=== PATIENT | female | born 1965 | race Caucasian/White ===

== ENCOUNTER 2017-09-19 11:56 | Emergency (ER) | payer SELFPAY | END 2017-09-19 12:41 | disposition home or self-care (01) | LOC: ER 11:56 | DX: L02.212 Cutaneous abscess of back [any part, except buttock and flank] (principal) | CPT/HCPCS: 99283 ==

== ENCOUNTER 2020-08-13 10:06 | Emergency (ER) | payer SELFPAY ==
[~2020-08-13] VITALS: Ht 162.6 cm; Wt 90.0 kg
[~2020-08-13 10:06] MED LIST: SULF1TAB24 PO
--- NOTE | 2020-08-13 11:56 | ED.ADGEN ---
Past Medical History Past Medical History: No Pertinent History Past Surgical History: Other Additional Past Surgical Histo: CERVICAL CANCER REMOVAL Smoking Status: Current Every Day Smoker Alcohol Use: None Drug Use: None General Adult EDM: Chief Complaint: THUMB HPI: HPI: Patient is a 55 year old female with right thumb pain and swelling over the past week. Patient states she had difficulty moving her thumb this morning and had difficult time trying to extend it. Patient states that while she was working she had poked her right thumb with a metal object that she is unsure of what it is. States object was removed intact. Thinks it might've penetrated to the bone. No other injuries, otherwise been well Review of Systems: Review of Systems: All other systems within normal limits except for as noted in the HPI Allergies: Allergies: Allergies Coded Allergies Type Severity Reaction Last Updated Verified No Known Drug Allergies 11/13/13 No Physical Exam: PE: Constitutional: Well developed, well nourished, no acute distress, non-toxic appearance. [] HENT: Normocephalic, atraumatic, bilateral external ears normal, nose normal. [] Eyes: PERRLA, conjunctiva normal, no discharge. [] Neck: No rigidity, supple, no stridor. [] Cardiovascular: Regular rate and rhythm, brisk cap refill [] Lungs & Thorax: Non labored symmetric respirations, no tachypnea or respiratory distress [] Abdomen: Soft, nondistended. Skin: Warm, dry, no erythema, no rash. [] Back: Unremarkable Extremities: No deformities, range of motion grossly intact, no lower extremity edema. Right thumb, flexion extension intact, popping with extension. No appreciable edema compared to left. [] Neurologic: Alert and oriented X 3, no focal deficits noted. [] Psychologic: Affect normal, judgement normal, mood normal. [] EKG: EKG: [] Heart Score: C/O Chest Pain: No Risk Factors: Risk Factors: DM, Current or recent (<one month) smoker, HTN, HLP, family history of CAD, obesity. Risk Scores: Score 0 - 3: 2.5% MACE over next 6 weeks - Discharge Home Score 4 - 6: 20.3% MACE over next 6 weeks - Admit for Clinical Observation Score 7 - 10: 72.7% MACE over next 6 weeks - Early Invasive Strategies Radiology/Procedures: Radiology/Procedures: [facility] [address] [place] [address] IMAGING REPORT Signed PATIENT: PAO MAN ACCOUNT: [id number] : 1965 LOCATION: ER AGE: 55 SEX: F EXAM STATUS: REG ER ORD. PHYSICIAN: VIVIEN BUTLER MD REASON: thumb injury PROCEDURE: FINGER(S) RIGHT Three-view right thumb dated 08/13/2020. No comparison available. CLINICAL INDICATION: Pain. FINDINGS: 3 views the right thumb show normal bony alignment. No displaced fracture. No periostitis or bone destruction. No acute osseous or articular abnormality. Mild degenerative change of the first carpometacarpal joint. IMPRESSION: No acute bony abnormality. Electronically signed by: Charan Nicole MD (08/13/2020 12:38 PM) [id number] DICTATED and SIGNED BY: CHARAN NICOLE MD DATE: 08/13/20 [id number] [] Course & Med Decision Making: Course & Med Decision Making No injury likely due to overuse, no indication that there is any tendon deficit. No signs of infection. Splinted for breast and instruction provided for follow-up. Sheila Disclaimer: Sheila Disclaimer: This electronic medical record was generated, in whole or in part, using a voice recognition dictation system. Departure Departure Impression: Primary Impression: Trigger finger Disposition: 01 HOME / SELF CARE / HOMELESS Condition: STABLE Referrals: NO PCP (PCP) CHARAN BARROSO DO Patient Instructions: Trigger Finger Additional Instructions: [facility] , [facility] [address] [address] VIVIEN BUTLER MD Aug 13, 2020 11:55
--- NOTE | 2020-08-13 12:40 | RAD ---
Three-view right thumb dated 08/13/2020. No comparison available. CLINICAL INDICATION: Pain. FINDINGS: 3 views the right thumb show normal bony alignment. No displaced fracture. No periostitis or bone vicky truction. No acute osseous or articular abnormality. Mild degenerative change of the first carpometac arpal joint. IMPRESSION: No acute bony abnormality. Electronically signed by: Charan Aleman MD (08/13/2020 12:38 PM) [id number]
[2020-08-13] MEDS ORDERED: DIPH,PERTUSS(ACELL),TET VAC/PF 0.5 ML SYRINGE. VAX IM ONE (13:30)
[2020-08-13 13:53] VITALS: BP 126/74
== END 2020-08-13 14:23 | disposition home or self-care (01) ==
LOC: ER 10:06
DX: M65.311 Trigger thumb, right thumb (principal); F17.200 Nicotine dependence, unspecified, uncomplicated
CPT/HCPCS: 29125; 73140; 90471; 90715; 99283